=== PATIENT | male | born 1950 | race Caucasian/White ===

== ENCOUNTER 2022-10-16 08:05 | Day surgery (SDC) | payer MEDICARE, MEDICAID ==
[~2022-10-16] VITALS: Ht 175.3 cm; Wt 76.1 kg
[~2022-10-16 08:05] MED LIST: BREO1INH INH; CEFUROXIME 1MG/0.1ML INTRACAMERAL INJ As Ordered ONE; COMBAER6 INH; CYCLOPENTOLATE 1% OPHTH SOLN 2ML BTL OS SCH; LIDOCAINE 1% SDV 5ML VIAL As Ordered ONE; LOSA25TA13 PO; OFLOXACIN 0.3 % (OCUFLOX) OPTH SOL 5ML OS SCH; ONDANSETRON 4MG 2ML VIAL IV PRN; PHENYLEPHRINE 2.5% OPHTH SOL 2ML OS SCH; PROPARACAINE 0.5% OPHTH SOL 15ML OS ONE; TROPICAMIDE 1% OPHTH SOLN 15ML OS SCH; VITA100093 PO; oxyCODONE 5MG TAB PO PRN
[2022-10-16] MEDS ORDERED: MIDAZOLAM INJ 2MG/2ML VIAL As Ordered ONE (08:24)
[2022-10-16] MEDS ORDERED: fentaNYL 100 MCG/2 ML INJECTION As Ordered ONE (08:24)
[2022-10-16 10:04] VITALS: BP 136/82; TEMP 97.4; O2SAT 94
== END 2022-10-16 10:20 | disposition home or self-care (01) ==
LOC: M SDC 08:05
PROVIDERS: ATTEND Ophthalmology
DX: H25.12 Age-related nuclear cataract, left eye (principal); I10 Essential (primary) hypertension; J44.9 Chronic obstructive pulmonary disease, unspecified
CPT/HCPCS: 66984; J0697; J2250; J3010; V2632

== ENCOUNTER → 2024-12-14 | Outpatient (CLI) | payer MEDICARE, MEDICAID ==
[~2024-12-14] MED LIST changes: +AMLO1TAB24 PO; -CEFUROXIME 1MG/0.1ML INTRACAMERAL INJ As Ordered ONE; -CYCLOPENTOLATE 1% OPHTH SOLN 2ML BTL OS SCH; +FLUT1BLS8 PO; -LIDOCAINE 1% SDV 5ML VIAL As Ordered ONE; -OFLOXACIN 0.3 % (OCUFLOX) OPTH SOL 5ML OS SCH; -ONDANSETRON 4MG 2ML VIAL IV PRN; -PHENYLEPHRINE 2.5% OPHTH SOL 2ML OS SCH; -PROPARACAINE 0.5% OPHTH SOL 15ML OS ONE; -TROPICAMIDE 1% OPHTH SOLN 15ML OS SCH; +VITA200032 PO; -oxyCODONE 5MG TAB PO PRN
== END ==
LOC: M ONCR 13:38
PROVIDERS: ATTEND General Practice
DX: R91.8 Other nonspecific abnormal finding of lung field (principal); Z87.891 Personal history of nicotine dependence; Z79.51 Long term (current) use of inhaled steroids; Z79.899 Other long term (current) drug therapy

== ENCOUNTER 2024-12-25 10:45 | Outpatient (RCR) | payer MEDICARE, MEDICAID | END 2025-01-01 | LOC: M ONCR 10:45 | PROVIDERS: ATTEND General Practice | DX: Z51.0 Encounter for antineoplastic radiation therapy (principal); C34.31 Malignant neoplasm of lower lobe, right bronchus or lung ==

== ENCOUNTER 2025-01-15 14:42 | Outpatient (RCR) | payer MEDICARE, MEDICAID | END 2025-01-31 | LOC: M ONCR 14:42 | PROVIDERS: ATTEND General Practice | DX: Z51.0 Encounter for antineoplastic radiation therapy (principal); C34.31 Malignant neoplasm of lower lobe, right bronchus or lung ==